=== PATIENT | female | born 1975 | race Caucasian/White ===

== ENCOUNTER 2020-06-14 11:50 | Outpatient (CLI) | payer OTHER ==
[~2020-06-14 11:50] MED LIST: CEFADROXIL500 MG PO; CELEBREX100 MG PO; CYCLOBENZAPRINE10 MG PO; IBUPROFEN800 MG PO; ULTRACET PO
== END 2020-06-14 12:07 | disposition home or self-care (01) ==
LOC: SONOGRAMA 11:50
PROVIDERS: ATTEND Surgery
DX: D24.1 Benign neoplasm of right breast (principal); N60.11 Diffuse cystic mastopathy of right breast; N60.12 Diffuse cystic mastopathy of left breast

== ENCOUNTER 2023-11-24 10:28 | Emergency (ER) | payer OTHER ==
[~2023-11-24] VITALS: Ht 162.6 cm; Wt 68.0 kg
[2023-11-24] MEDS ORDERED: LOSARTAN POTASSIUM 25 MG TABLET PO ONE (12:00)
[2023-11-24 13:48] LABS: HEMATOCRIT 36.2 % (36.0-45.00); HEMOGLOBIN 11.8 g/dL (12.0-15.00); MEAN CELL VOLUME 80.9 fL (80.00-100.00); MEAN CORPUSCULAR HEMOGLOBIN 26.4 pg (27.00-32.0); MEAN CORPUSCULAR HGB CONC 32.6 g/dl (32.0-36.0); PLATELET COUNT 223 K/uL (150-450); RED BLOOD COUNT 4.47 M/uL (4.00-6.00); RED CELL DISTRIBUTION WIDTH 15.9 % (11.5-14.5)
[2023-11-24 14:07] LABS: PH,URINE 5.5 (5.0-8.0); URINE APPEARANCE Clear; URINE BILIRRUBIN Negative (NEGATIVE); URINE BLOOD Negative; URINE COLOR Yellow; URINE GLUCOSE Negative (NEGATIVE); URINE KETONE Negative (NEGATIVE); URINE LEUKOCYTE Negative; URINE NITRATE Negative; URINE PROTEIN Negative (NEGATIVE); URINE UROBILINOGEN 0.2 E.U./dl
[2023-11-24 14:08] LABS: URINE BACTERIA 11.3 uL (0.0-1933); URINE EPITHELIAL CELLS 7.8 uL (0.0-38.8)
[2023-11-24 15:01] LABS: ALBUMIN 3.3 gm/dL (3.4-5.0); BILIRUBIN TOTAL 0.6 mg/dL (0.3-1.2); CALCIUM 9.3 mg/dL (8.5-10.1); CREATININE SERUM 0.71 mg/dL (0.55-1.02); GFR 89.02; GLOBULINA 4.1 G/DL (2.4-3.5); POTASSIUM 4.42 mEq/L (3.5-5.1); TOTAL PROTEIN 7.4 gm/dL (6.4-8.2)
[2023-11-24] MEDS ORDERED: COZAAR25 MG PO (15:22)
== END 2023-11-24 15:36 | disposition home or self-care (01) ==
LOC: ER 10:29
PROVIDERS: General Practice
DX: R07.9 Chest pain, unspecified (principal); R20.0 Anesthesia of skin